=== PATIENT | female | born 1985 | race Caucasian/White ===

== ENCOUNTER 2016-07-29 09:13 | Emergency (ER) | payer OTHER ==
[2016-07-29 12:22] VITALS: BP 126/81
--- NOTE | 2016-07-30 07:25 | ER ---
DATE SEEN: 07/29/2016 HISTORY OF PRESENT ILLNESS: This 30-year-old 3, para 2 -0-0-2, last menstrual period first or second week in February, approximately 18 weeks' gestation. EDC is December 21. Last ultrasound at 10 weeks' gestation. Chief complaint: She notes she has less movement than normal. She notes "no fluttering." She wonders about the baby's movement. No history of urinary tract infection, frequency, urgency, or dysuria. She has had mild back pain in last 2 days and small amount of vaginal bleeding on Friday - 2 days ago, 07/27/2016, and mild left lower quadrant abdominal discomfort. Pain is 5/10 on and off. The patient denies any nausea, vomiting, or diarrhea. She has mild constipation. Uses Colace with . Ultrasound performed approximately 10 weeks' gestation. PAST SURGICAL HISTORY: [place] teeth removed. ALLERGIES: Septra DS. REVIEW OF SYSTEMS: Otherwise, negative. PHYSICAL EXAMINATION: VITAL SIGNS: Blood pressure 110/62, heart rate 92, respirations 16, oxygen saturation 100%, and temperature is 36.6 degrees centigrade. HEENT: Negative. LUNGS: Clear to auscultation without rales, rhonchi, or wheezes. HEART: S1, S2. No tachycardia. ABDOMEN: Soft. No guarding. No abdominal discomfort. Symphysis to pubis 18 cm. LABORATORY DATA: Quick look ultrasound demonstrated heart rate 126 to 132 per minute. Placenta looks intact no placenta praevia. ASSESSMENT: At present: 1. Viable infant. 2. History of decreased motion of baby. 3. Vaginal bleed, small amount, 2 days ago. Currently stable. 4. Urinalysis. Does meet criteria for culture. Urinalysis results and culture results will be pending. 5. , 3, para 2-0-0-2, approximately 18 weeks' gestation. 6. No evidence for placenta previa or abruptio. PLAN: 1. Reassured the patient. 2. Follow up with doctor in a week, earlier if worse. /[id number] HARRY/RAJIV HERNANDEZ
== END 2016-07-29 10:59 | disposition home or self-care (01) ==
LOC: FB.ED 09:13 → EDSTATUS 09:13 → FB.ED 10:59
DX: O20.9 Hemorrhage in early pregnancy, unspecified (principal); Z3A.18 18 weeks gestation of pregnancy
CPT/HCPCS: 81001; 87086; 99283